=== PATIENT | female | born 1985 | race Hispanic/Latino ===

== ENCOUNTER 2018-04-13 03:04 | Emergency (ER) | payer SELFPAY ==
[2018-04-13 03:24] VITALS: PULSE 114; RESP 18; TEMP 98.6; O2SAT 98
[2018-04-13 03:26] VITALS: BP 146/104
--- NOTE | 2018-04-13 03:28 | ED PDOC ---
HPI: Psych/Substance Abuse Time Seen by Provider: 04/13/18 03:12 Chief Complaint (Nursing): Alcohol Ingestion Chief Complaint (Provider): Alcohol Ingestion History Per: Patient Modifying Factor(s): Alcohol Additional Complaint(s): 32 y/o female with history of hypertension presents to ER via EMS for evaluation of alcohol intoxication. Patient is requesting Detox upon arrival and reports she never attempted Detox before. She admits to drinking tonight and denies any physical complaints. Patient reports taking lisinopril 20 mg daily for hypertension. Other symptoms: (-) hallucinations, (-) suicidal ideation, (-) ho micidal ideation, (-) trauma, (-) fever, (-)headache, (-) dyspnea, (-) vomiting, (-) patient intent of initiating a suicide attempt. PMD: None provided (patient recently relocated from [place]) Past Medical History Reviewed: Historical Data, Nursing Documentation, Vital Signs Vital Signs: Last Vital Signs Temp 98.6 F 04/13/18 03:10 Pulse 114 H 04/13/18 03:10 Resp 18 04/13/18 03:10 BP 155/117 H 04/13/18 03:10 Pulse Ox 98 04/13/18 03:10 - Medical History PMH: HTN - Surgical History Other surgeries: breast implants - Family History Family History: States: Unknown Family Hx - Social History Current smoker - smoking cessation education provided: Yes Alcohol: > 2 Drinks/Day Drugs: Denies - Allergies Allergies/Adverse Reactions: Allergies Allergy/AdvReac Type Severity Reaction Status Date / Time No Known Allergies Allergy Verified 04/13/18 03:24 Review of Systems ROS Statement: Except As Marked, All Systems Reviewed And Found Negative Gastrointestinal: Negative for: Vomiting Psych: Positive for: Other (Alcohol intoxication). Negative for: Suicidal ideation Physical Exam - Reviewed Nursing Documentation Reviewed: Yes Vital Signs Reviewed: Yes - Physical Exam Comments: GENERAL APPEARANCE: Patient is awake, alert, oriented x 3, in no acute distress. (+) Odor of alcohol in breath but answers questions appropriately. SKIN: Warm, dry; (-) cyanosis ENMT: Mucous membranes moist. Airway patent: (-) stridor. NECK: Supple, FROM HEART AND CARDIOVASCULAR: (-) irregularity CHEST AND RESPIRATORY: (-) rales, (-) rhonchi, (-) wheezes; breath sounds equal. Respirations even and nonlabored. ABDOMEN: Soft, (-) distention, (-) tenderness, (-) guarding. NEURO AND PSYCH: Mental status as above. Pupils equal and reactive; EOMI; (-) facial asymmetry; (+) Gait: steady without assistance. Speech: clear. - ECG O2 Sat by Pulse Oximetry: 98 (RA) Pulse Ox Interpretation: Normal Medical Decision Making Medical Decision Makin Initial Impression: alcohol abuse with intoxication; elevated BP reading. Plan: Given patient is awake, alert, oriented x3; answers questions appropriately and is ambulatory with a steady gait, patient is stable for discharge. Patient advised to continue taking her Lisinopril as prescribed. Patient denies any complaints related to her elevated BP reading and states she is due for a dose of her medication at 7am. Patient states she will call an uber home. Patient supplied with packet of detox resources. Lab / Diagnostic results d/w the patient in great detail. Diagnosis of alcohol abuse with intoxication; elevated BP reading d/w the patient. Based on history, exam and diagnostic results, plan will be for outpatient follow up with detox resources. Patient instructed to follow-up with pmd / referral provided / the clinic in 1- 2 days without fail. Return to the emergency room at any time for any new or worsening symptoms. Patient states she fully agrees with and understands discharge instructions. States that she agrees with the plan and disposition. Verbalized and repeated discharge instructions and plan. I have given the patient opportunity to ask any additional questions. Scribe Attestation: Documented by Sachi Choudhary, acting as a scribe for Kylee Mera PA-C. Provider Scribe Attestation: All medical record entries made by the Scribe were at my direction and personally dictated by me. I have reviewed the chart and agree that the record a ccurately reflects my personal performance of the history, physical exam, medical decision making, and the department course for this patient. I have also personally directed, reviewed, and agree with the discharge instructions and disposition. Disposition - Clinical Impression Clinical Impression: Alcohol abuse with intoxication, Elevated blood pressure reading - Patient ED Disposition Is Patient to be Admitted: No Counseled Patient/Family Regarding: Studies Performed, Diagnosis, Need For Followup - Disposition Referrals: Alcoholics Anonymous [Outside] [facility] [Outside] Disposition: Routine/Home Disposition Time: 03:25 Condition: FAIR Additional Instructions: The emergency medical care you received today was directed at your acute symptoms. If you were prescribed any medication, please fill it and take as directed. It may take several days for your symptoms to resolve. Return to the Emergency Department if your symptoms worsen, do not improve, or if you have any other problems. Please contact your doctor in 2 days for re-evaluation and follow up / or call one of the physicians/clinics you have been referred to that are listed on the Patient Visit Information form that is included in your discharge packet. Bring any paperwork you were given at discharge with you along with any medications you are taking to your follow up visit. Our treatment cannot replace ongoing medical care by a primary care provider (PCP) outside of the emergency department. Instructions: Alcohol Use - When Is Drinking a Problem?, High Blood Pressure in Adults, Medicines for High Blood Pressure, Alcohol Withdrawal (DC), Alcohol Abuse and Alcoholism (DC), Effects of Alcohol on Your Health, Hypertension (ED) Forms: Whitepages ([place]) Print Language: [place] - POA Present On Arrival: None
== END 2018-04-13 03:38 | disposition home or self-care (01) ==
LOC: H.ER 03:04
DX: F10.129 Alcohol abuse with intoxication, unspecified (principal); I10 Essential (primary) hypertension